=== PATIENT | female | born 1960 | race African-American/Black ===

== ENCOUNTER 2016-07-09 07:27 | Emergency (ER) | payer SELFPAY ==
[~2016-07-09] VITALS: Ht 185.4 cm; Wt 127.0 kg
[~2016-07-09 07:27] MED LIST: IBUP-777; NORCO
[2016-07-09 07:41] VITALS: BP 166/80
[2016-07-09] MEDS ORDERED: ONDANSETRON 4MG ODT PO STA (09:43)
[2016-07-09 10:14] LABS: CARBON DIOXIDE 25 mEq/L (21-32); CHLORIDE 103 mEq/L (98-107)
[2016-07-09 11:01] LABS: CLARITY URINE CLOUDY (CLEAR); COLOR URINE YELLOW (YELLOW); GLUCOSE URINE NEGATIVE (NEGATIVE); KETONES URINE NEGATIVE (NEGATIVE); LEUKOCYTE ESTERASE URINE NEGATIVE (NEGATIVE); NITRITE URINE NEGATIVE (NEGATIVE); OCCULT BLOOD URINE 1+ (NEGATIVE); PROTEIN URINE NEGATIVE (NEGATIVE); SPECIFIC GRAVITY URINE 1.025 (1.005-1.030); UROBILINOGEN URINE 0.2 E.U./dL (0.2-1.0)
== END 2016-07-09 12:42 | disposition home or self-care (01) ==
LOC: ER 09:30
DX: B48.8 Other specified mycoses (principal); B34.9 Viral infection, unspecified; I10 Essential (primary) hypertension; Z88.2 Allergy status to sulfonamides; Z79.1 Long term (current) use of non-steroidal anti-inflammatories (NSAID); Z87.440 Personal history of urinary (tract) infections; Z90.49 Acquired absence of other specified parts of digestive tract
CPT/HCPCS: 36415; 80048; 81001; 99284; Q0162

== ENCOUNTER 2020-09-06 10:30 | Inpatient (IN) | payer MEDICARE, MEDICAID ==
[~2020-09-06] VITALS: Ht 167.6 cm; Wt 121.6 kg
[2020-09-06] MEDS ORDERED: ACETAMINOPHEN 325MG TABLET PO ONE (11:00)
[2020-09-06 11:58] LABS: EOSINOPHILS % 0.1 % (0.0-5.0); HEMATOCRIT. 37.5 % (36.0-48.0); HEMOGLOBIN. 12.6 g/dL (12.0-16.0); LYMPHOCYTES % 40.8 % (20.0-50.0); MEAN CORPUSCULAR HEMOGLOBIN 27.1 pg (28.0-32.0); MEAN CORPUSCULAR VOLUME 80.4 fL (81.0-99.0); MEAN PLATELET VOLUME 9.5 fl (7.4-10.4); MONOCYTES % 9.2 % (2.0-8.0); NEUTROPHILS % 48.9 % (40.0-76.0); PLATELET 131 x1000/uL (130-400); RED BLOOD CELL COUNT 4.67 mill/uL (4.2-5.4); RED CELL DISTRIBUTION WIDTH 15.6 % (11.6-14.6)
[2020-09-06 12:02] LABS: CHLORIDE 103 mEq/L (98-107)
[2020-09-06 12:06] LABS: D-DIMER 0.41 mg/L FEU (<0.50); PROTHROMBIN TIME 10.9 sec (9.6-11.0)
[2020-09-06 12:10] LABS: CREATINE KINASE 303 IU/L (26-192)
[2020-09-06 12:25] LABS: BG BASE EXCESS 5.9 mmol/L (-2.0-2.0); BG DEOXYHEMOGLOBIN 4.7 % (0.0-5.0); BG FRACTION INSPIRED OXYGEN 21; BG HCO3 ACT 29.2 mmol/L (22.0-26.0); BG METHEMOGLOBIN 0.3 % (0.0-1.5); BG OXYGEN SATURATION 95.3 % (92.0-98.5); BG PCO2 37.6 mmHg (35.0-45.0); BG PH 7.508 (7.350-7.450); BG PO2 77.2 mmHg (75.0-100.0); BG SAMPLE SITE RIGHT RADIAL; BG TOTAL HEMOGLOBIN 12.8 g/dL (12.0-18.0); BG VENT MODE ROOM AIR
[2020-09-06] MEDS ORDERED: DEXAMETHASONE 10 MG/ML VIAL IV ONE (12:45)
[2020-09-06 13:14] LABS: CLARITY URINE CLEAR (CLEAR); COLOR URINE YELLOW (YELLOW); KETONES URINE 1+ (NEGATIVE); LEUKOCYTE ESTERASE URINE NEGATIVE (NEGATIVE); NITRITE URINE NEGATIVE (NEGATIVE); OCCULT BLOOD URINE NEGATIVE (NEGATIVE); PROTEIN URINE 1+ (NEGATIVE); SPECIFIC GRAVITY URINE 1.025 (1.005-1.030); UROBILINOGEN URINE 0.2 E.U./dL (0.2-1.0)
[2020-09-06] MEDS ORDERED: ALBUTEROL 6.7GM HFA INHALER ORI PRN (17:15)
[2020-09-06] MEDS ORDERED: KETOROLAC 15MG/ML VIAL IV PRN (17:30)
[2020-09-06] MEDS ORDERED: DOCUSATE SODIUM 100MG CAPSULE PO PRN (17:30)
[2020-09-06] MEDS ORDERED: ACETAMINOPHEN 325MG TABLET PO PRN ×2 (17:30)
[2020-09-06] MEDS ORDERED: ZOLPIDEM TARTRATE 5MG TABLET PO PRN (17:30)
[2020-09-06] MEDS ORDERED: MAGNESIUM/ALUMINUM HYDROXIDE/SIMETHICONE 30ML UDC PO PRN (17:30)
[2020-09-06] MEDS ORDERED: GUAIFENESIN 200MG/10ML SUGAR FREE UDC PO PRN (17:30)
[2020-09-06] MEDS ORDERED: NITROGLYCERIN 0.4MG TABLET SL SL PRN (17:30)
[2020-09-06] MEDS ORDERED: AMLO10TA80 MT (17:40)
[2020-09-06 17:48] VITALS: BP 141/69
[2020-09-06 17:57] VITALS: BP 141/69
[2020-09-06] MEDS: ASCORBIC ACID 500 MG TABLET PO SCH (18:10)
[2020-09-06] MEDS: ZINC SULFATE 220 MG ( 50 ) CAPSULE PO SCH (18:10)
[2020-09-06 19:30] LABS: FOLIC ACID (FOLATE) SERUM >20 ng/mL ng/mL (>5.38)
[2020-09-06] MEDS: AZITHROMYCIN 500 MG in DEXT 5% WATER 250 ML IV SCH (19:58)
[2020-09-06] MEDS: FAMOTIDINE 20MG TABLET PO SCH (19:59)
[2020-09-06 20:00] VITALS: BP 156/76
[2020-09-06] MEDS: GUAIFENESIN 600MG ER TABLET PO SCH (20:00)
[2020-09-06] MEDS ORDERED: POTASSIUM CHLORIDE 20MEQ/PACKET PO NR (21:00)
[2020-09-06] MEDS ORDERED: ENOXAPARIN 40MG/0.4ML SYR SUBCUT SCH (21:00)
[2020-09-06] MEDS: CEFTRIAXONE 1,000 MG in DEXTROSE 5% WATER 50 ML IV SCH (21:13)
[2020-09-06] MEDS: ONDANSETRON HCL 4MG/2ML INJ IV PRN (21:23)
[2020-09-06 21:43] LABS: VITAMIN B12 SERUM 614 pg/mL (211-911)
[2020-09-06 23:31] LABS: CREATINE KINASE MB FRACTION < 1.0 ng/mL (0.5-3.6)
[2020-09-07] MEDS: TRAMADOL 50MG TABLET PO PRN ×2 (00:02→21:53)
[2020-09-07 00:06] VITALS: BP 142/76
[2020-09-07 00:14] LABS: CREATINE KINASE 257 IU/L (26-192)
[2020-09-07 04:00] VITALS: BP 161/77
[2020-09-07 06:43] LABS: CHLORIDE 104 mEq/L (98-107)
[2020-09-07 06:49] LABS: PHOSPHORUS 1.7 mg/dL (2.5-4.9)
[2020-09-07 06:52] LABS: CREATINE KINASE 242 IU/L (26-192)
[2020-09-07 06:55] LABS: CREATINE KINASE MB FRACTION < 1.0 ng/mL (0.5-3.6)
[2020-09-07 07:03] LABS: BASOPHILS % 0.5 % (0.0-2.0); HEMATOCRIT. 36.2 % (36.0-48.0); LYMPHOCYTES % 39.8 % (20.0-50.0); MEAN CORPUSCULAR HEMOGLOBIN 26.3 pg (28.0-32.0); MEAN CORPUSCULAR VOLUME 79.7 fL (81.0-99.0); MONOCYTES % 12.9 % (2.0-8.0); NEUTROPHILS % 46.8 % (40.0-76.0); PLATELET 139 x1000/uL (130-400); RED BLOOD CELL COUNT 4.55 mill/uL (4.2-5.4)
[2020-09-07 08:00] VITALS: BP 132/58
[2020-09-07] MEDS: DEXAMETHASONE 6MG TABLET PO SCH (08:06)
[2020-09-07] MEDS: ZINC SULFATE 220 MG ( 50 ) CAPSULE PO SCH (08:06)
[2020-09-07] MEDS: ASCORBIC ACID 500 MG TABLET PO SCH (08:06)
[2020-09-07] MEDS: FAMOTIDINE 20MG TABLET PO SCH ×2 (08:06→20:57)
[2020-09-07] MEDS: GUAIFENESIN 600MG ER TABLET PO SCH ×2 (08:06→20:57)
[2020-09-07] MEDS ORDERED: CEFTRIAXONE 1 G PREMIX 50 ML IV SCH (09:00)
[2020-09-07] MEDS: ONDANSETRON HCL 4MG/2ML INJ IV PRN (11:13)
[2020-09-07 12:00] VITALS: BP 143/77
[2020-09-07 16:00] VITALS: BP 146/68
[2020-09-07] MEDS: ENOXAPARIN 30MG/0.3ML SYR SUBCUT SCH (17:50)
[2020-09-07] MEDS: AZITHROMYCIN 500 MG in DEXT 5% WATER 250 ML IV SCH (18:40)
[2020-09-07 20:00] VITALS: BP 150/72
[2020-09-07] MEDS: CEFTRIAXONE 1,000 MG in DEXTROSE 5% WATER 50 ML IV SCH (20:57)
[2020-09-08] VITALS: BP 137/68
[2020-09-08 04:00] VITALS: BP 153/60
[2020-09-08] MEDS: ENOXAPARIN 30MG/0.3ML SYR SUBCUT SCH ×2 (06:01→17:17)
[2020-09-08 08:00] VITALS: BP 161/59
[2020-09-08] MEDS: CLONIDINE 0.1MG TABLET PO PRN (08:45)
[2020-09-08] MEDS: DEXAMETHASONE 6MG TABLET PO SCH (08:45)
[2020-09-08] MEDS: FAMOTIDINE 20MG TABLET PO SCH ×2 (08:45→20:15)
[2020-09-08] MEDS: ONDANSETRON HCL 4MG/2ML INJ IV PRN (08:45)
[2020-09-08] MEDS: ZINC SULFATE 220 MG ( 50 ) CAPSULE PO SCH (08:46)
[2020-09-08] MEDS: ASCORBIC ACID 500 MG TABLET PO SCH (08:46)
[2020-09-08] MEDS: GUAIFENESIN 600MG ER TABLET PO SCH ×2 (08:46→20:15)
[2020-09-08 12:00] VITALS: BP 157/55
[2020-09-08] MEDS ORDERED: NALOXONE HCL 0.4MG/ML VIAL IV PRN (14:30)
[2020-09-08 16:00] VITALS: BP 142/51
[2020-09-08] MEDS: AZITHROMYCIN 500 MG in DEXT 5% WATER 250 ML IV SCH (17:17)
[2020-09-08 20:00] VITALS: BP 130/53
[2020-09-08] MEDS: CEFTRIAXONE 1,000 MG in DEXTROSE 5% WATER 50 ML IV SCH (20:15)
[2020-09-08] MEDS: TRAMADOL 50MG TABLET PO PRN (20:15)
[2020-09-09] VITALS: BP 149/70
[2020-09-09 04:00] VITALS: BP 133/52
[2020-09-09] MEDS: ENOXAPARIN 30MG/0.3ML SYR SUBCUT SCH ×2 (05:30→18:18)
[2020-09-09 08:00] VITALS: BP 190/67
[2020-09-09] MEDS: DEXAMETHASONE 6MG TABLET PO SCH (09:21)
[2020-09-09] MEDS: FAMOTIDINE 20MG TABLET PO SCH ×2 (09:22→20:46)
[2020-09-09] MEDS: ZINC SULFATE 220 MG ( 50 ) CAPSULE PO SCH (09:22)
[2020-09-09] MEDS: GUAIFENESIN 600MG ER TABLET PO SCH ×2 (09:22→20:46)
[2020-09-09] MEDS: ASCORBIC ACID 500 MG TABLET PO SCH (09:22)
[2020-09-09] MEDS: CLONIDINE 0.1MG TABLET PO PRN (09:23)
[2020-09-09 12:00] VITALS: BP 159/65
[2020-09-09 16:00] VITALS: BP 159/74
[2020-09-09] MEDS: AZITHROMYCIN 500 MG in DEXT 5% WATER 250 ML IV SCH (18:18)
[2020-09-09 20:00] VITALS: BP 146/73
[2020-09-09] MEDS: CEFTRIAXONE 1,000 MG in DEXTROSE 5% WATER 50 ML IV SCH (20:46)
[2020-09-10] VITALS: BP 151/63
[2020-09-10 04:00] VITALS: BP 152/53
[2020-09-10] MEDS: ENOXAPARIN 30MG/0.3ML SYR SUBCUT SCH (05:10)
[2020-09-10 08:02] VITALS: BP 146/82
[2020-09-10] MEDS: GUAIFENESIN 600MG ER TABLET PO SCH (08:27)
[2020-09-10] MEDS: ASCORBIC ACID 500 MG TABLET PO SCH (08:28)
[2020-09-10] MEDS: ZINC SULFATE 220 MG ( 50 ) CAPSULE PO SCH (08:28)
[2020-09-10] MEDS: FAMOTIDINE 20MG TABLET PO SCH (08:28)
[2020-09-10] MEDS: DEXAMETHASONE 6MG TABLET PO SCH (08:28)
[2020-09-10] MEDS ORDERED: BENZ-16 MT (11:14)
[2020-09-10] MEDS ORDERED: ALBU18HF2 IH (11:14)
[2020-09-10 12:00] VITALS: BP 141/66
[2020-09-10 13:18] VITALS: BP 141/66
[2020-09-10] MEDS ORDERED: FAMO-135 MT (13:36)
[2020-09-10] MEDS ORDERED: CHOL200016 (13:36)
[2020-09-10] MEDS ORDERED: ZINC220C2 (13:36)
[2020-09-10] MEDS ORDERED: ASCO-339 PO (13:36)
[2020-09-10] MEDS ORDERED: DEXA6TAB6 PO (13:36)
[2020-09-10] MEDS ORDERED: AZIT500T3 MT (13:36)
== END 2020-09-10 16:30 | disposition home or self-care (01) | DRG 871 ==
LOC: ER 10:30 → 7WST 13:28 → EDBEDREQSVC 13:31 → EDBEDREQ 13:31 → EDBEDREQTM 13:31 → ENRESERV 15:09 → ER 15:27 → SUPCPDRO 16:53
PROVIDERS: ADMIT Internal Medicine; ATTEND Internal Medicine
DX: A41.89 Other specified sepsis (principal); U07.1 COVID-19; J96.01 Acute respiratory failure with hypoxia; J12.82 Pneumonia due to coronavirus disease 2019; E87.6 Hypokalemia; R00.1 Bradycardia, unspecified; M54.30 Sciatica, unspecified side; I10 Essential (primary) hypertension; Z87.440 Personal history of urinary (tract) infections; Z90.49 Acquired absence of other specified parts of digestive tract; Z78.9 Other specified health status; Z88.2 Allergy status to sulfonamides; Z28.3 Underimmunization status
CPT/HCPCS: 36415; 36600; 71045; 80053; 80061; 81003; 82375; 82550; 82553; 82607; 82728; 82746; 82805; 83036; 83540; 83550; 83605; 83615; 83735; 84100; 84145; 84484; 85025; 85379; 85384; 86140; 93005; 93970; 99291; J0456; J0696; J1100; J1650; J2405; J7040; J7060; U0003; U0005

== ENCOUNTER 2021-07-31 11:12 | Emergency (ER) | payer MEDICARE, MEDICAID ==
[~2021-07-31] VITALS: Ht 185.4 cm; Wt 122.0 kg
[~2021-07-31 11:12] MED LIST changes: +ALBU18HF2 IH; +AMLO10TA80 MT; +ASCO-339 PO; +AZIT500T3 MT; +BENZ-16 MT; +CHOL200016; +DEXA6TAB6 PO; +FAMO-135 MT; -IBUP-777; -NORCO; +ZINC220C2
[2021-07-31] MEDS ORDERED: ONDANSETRON HCL 4MG/2ML INJ IV STA (12:17)
[2021-07-31] MEDS ORDERED: KETOROLAC 30MG/ML VIAL IV STA (12:17)
[2021-07-31] MEDS ORDERED: SODIUM CHLORIDE 0.9% 1,000 ML IV ONE (12:30)
[2021-07-31] MEDS ORDERED: CEFTRIAXONE 1 G PREMIX 50 ML IV ONE (12:30)
[2021-07-31 12:52] LABS: CLARITY URINE CLEAR (CLEAR); COLOR URINE YELLOW (YELLOW); KETONES URINE NEGATIVE (NEGATIVE); LEUKOCYTE ESTERASE URINE 1+ (NEGATIVE); NITRITE URINE NEGATIVE (NEGATIVE); OCCULT BLOOD URINE NEGATIVE (NEGATIVE); PROTEIN URINE NEGATIVE (NEGATIVE); SPECIFIC GRAVITY URINE 1.022 (1.005-1.030)
[2021-07-31 12:53] LABS: BASOPHILS % 1.9 % (0.0-2.0); EOSINOPHILS % 2.8 % (0.0-5.0); HEMATOCRIT. 36.8 % (36.0-48.0); LYMPHOCYTES % 34.3 % (20.0-50.0); MEAN CORPUSCULAR HEMOGLOBIN 26.1 pg (28.0-32.0); MEAN CORPUSCULAR VOLUME 79.9 fL (81.0-99.0); MEAN PLATELET VOLUME 9.3 fl (7.4-10.4); MONOCYTES % 7.6 % (2.0-8.0); NEUTROPHILS % 53.4 % (40.0-76.0); PLATELET 186 x1000/uL (130-400); RED BLOOD CELL COUNT 4.61 mill/uL (4.2-5.4); RED CELL DISTRIBUTION WIDTH 16.2 % (11.6-14.6)
[2021-07-31 12:55] LABS: CHLORIDE 106 mEq/L (98-107)
[2021-07-31] MEDS ORDERED: IBUP-2029 MT (14:13)
[2021-07-31] MEDS ORDERED: DIF15 MT (14:13)
[2021-07-31] MEDS ORDERED: CIPR500T5 MT (14:13)
[2021-07-31 16:40] VITALS: BP 167/95
== END 2021-07-31 16:50 | disposition home or self-care (01) ==
LOC: ER 11:12
DX: N39.0 Urinary tract infection, site not specified (principal); B37.3 Candidiasis of vulva and vagina; I10 Essential (primary) hypertension; M54.30 Sciatica, unspecified side; N73.9 Female pelvic inflammatory disease, unspecified; Z90.49 Acquired absence of other specified parts of digestive tract; Z88.2 Allergy status to sulfonamides
CPT/HCPCS: 36415; 74176; 80053; 81003; 85025; 87086; 96365; 96375; 99284; J0696; J1885; J2405; J7030

== ENCOUNTER 2021-11-11 14:54 | Emergency (ER) | payer MEDICARE, MEDICAID ==
[~2021-11-11] VITALS: Ht 175.3 cm; Wt 101.0 kg
[~2021-11-11 14:54] MED LIST changes: +CIPR500T5 MT; +DIF15 MT; +IBUP-2029 MT
[2021-11-11] MEDS ORDERED: KETOROLAC 30MG/ML VIAL IV STA (16:58)
[2021-11-11] MEDS ORDERED: SODIUM CHLORIDE 0.9% 1,000 ML IV ONE (17:00)
[2021-11-11 18:00] LABS: CLARITY URINE CLEAR (CLEAR); COLOR URINE YELLOW (YELLOW); KETONES URINE TRACE (NEGATIVE); LEUKOCYTE ESTERASE URINE NEGATIVE (NEGATIVE); NITRITE URINE NEGATIVE (NEGATIVE); OCCULT BLOOD URINE NEGATIVE (NEGATIVE); PH URINE 5.5 (4.5-8.0); PROTEIN URINE TRACE (NEGATIVE); SPECIFIC GRAVITY URINE 1.033 (1.005-1.030); UROBILINOGEN URINE 0.2 E.U./dL (0.2-1.0)
[2021-11-11 18:30] LABS: BASOPHILS % 1.2 % (0.0-2.0); EOSINOPHILS % 3.1 % (0.0-5.0); HEMATOCRIT. 35.6 % (36.0-48.0); HEMOGLOBIN. 11.9 g/dL (12.0-16.0); LYMPHOCYTES % 35.2 % (20.0-50.0); MEAN CORPUSCULAR HEMOGLOBIN 27.6 pg (28.0-32.0); MEAN CORPUSCULAR VOLUME 82.7 fL (81.0-99.0); MEAN PLATELET VOLUME 9.1 fl (7.4-10.4); MONOCYTES % 6.5 % (2.0-8.0); PLATELET 199 x1000/uL (130-400); RED BLOOD CELL COUNT 4.31 mill/uL (4.2-5.4); RED CELL DISTRIBUTION WIDTH 15.5 % (11.6-14.6)
[2021-11-11 19:54] LABS: *AMPHETAMINES SCREEN URINE NEGATIVE (NEGATIVE); *BARBITURATES SCREEN URINE NEGATIVE (NEGATIVE); *BENZODIAZEPINES SCREEN URINE NEGATIVE (NEGATIVE); *COCAINE SCREEN URINE NEGATIVE (NEGATIVE); CANNABINOID URINE SCREEN NEGATIVE (NEGATIVE); METHADONE URINE SCREEN NEGATIVE (NEGATIVE); OPIATES URINE SCREEN NEGATIVE (NEGATIVE); PHENCYCLIDINE URINE SCREEN NEGATIVE (NEGATIVE)
[2021-11-11 20:11] LABS: CHLORIDE 106 mEq/L (98-107)
[2021-11-11] MEDS ORDERED: IBUP-2030 MT (20:44)
[2021-11-11] MEDS ORDERED: METH-773 MT (20:44)
[2021-11-11 21:06] VITALS: BP 136/87
== END 2021-11-11 21:09 | disposition home or self-care (01) ==
LOC: ER 14:54
DX: M54.50 Low back pain, unspecified (principal); G89.29 Other chronic pain; M54.30 Sciatica, unspecified side; I10 Essential (primary) hypertension; N73.9 Female pelvic inflammatory disease, unspecified; Z90.49 Acquired absence of other specified parts of digestive tract; Z88.8 Allergy status to other drugs, medicaments and biological substances
CPT/HCPCS: 36415; 80053; 80305; 81003; 83690; 85025; 96361; 96374; 99283; J1885; J7030

== ENCOUNTER 2022-05-13 18:37 | Emergency (ER) | payer MEDICARE, MEDICAID ==
[~2022-05-13] VITALS: Ht 185.4 cm; Wt 161.0 kg
[~2022-05-13 18:37] MED LIST changes: +IBUP-2030 MT; +METH-773 MT
[2022-05-13] MEDS ORDERED: KETOROLAC 30MG/ML VIAL IM ONE (22:45)
[2022-05-13] MEDS ORDERED: ACETAMINOPHEN 325MG TABLET PO ONE (22:45)
[2022-05-13 22:54] VITALS: BP 191/91
[2022-05-13 22:57] LABS: CLARITY URINE CLOUDY (CLEAR); COLOR URINE YELLOW (YELLOW); KETONES URINE NEGATIVE (NEGATIVE); LEUKOCYTE ESTERASE URINE 1+ (NEGATIVE); NITRITE URINE POSITIVE (NEGATIVE); OCCULT BLOOD URINE NEGATIVE (NEGATIVE); PROTEIN URINE NEGATIVE (NEGATIVE); SPECIFIC GRAVITY URINE 1.023 (1.005-1.030)
[2022-05-13 23:02] LABS: BASOPHILS % 1.1 % (0.0-2.0); EOSINOPHILS % 2.3 % (0.0-5.0); LYMPHOCYTES % 30.7 % (20.0-50.0); MEAN CORPUSCULAR HEMOGLOBIN 26.5 pg (28.0-32.0); MEAN CORPUSCULAR VOLUME 81.7 fL (81.0-99.0); MEAN PLATELET VOLUME 9.1 fl (7.4-10.4); MONOCYTES % 7.5 % (2.0-8.0); NEUTROPHILS % 58.4 % (40.0-76.0); PLATELET 187 x1000/uL (130-400); RED BLOOD CELL COUNT 4.53 mill/uL (4.2-5.4); RED CELL DISTRIBUTION WIDTH 15.9 % (11.6-14.6)
[2022-05-13 23:11] LABS: CHLORIDE 108 mEq/L (98-107)
[2022-05-14] MEDS ORDERED: NAPR-681 MT (00:03)
[2022-05-14] MEDS ORDERED: CEPH500C2 MT (00:03)
[2022-05-14] MEDS ORDERED: CEPHALEXIN 250MG CAPSULE PO ONE (00:15)
== END 2022-05-14 00:14 | disposition home or self-care (01) ==
LOC: ER 18:37
DX: N39.0 Urinary tract infection, site not specified (principal); I10 Essential (primary) hypertension; Z88.2 Allergy status to sulfonamides; Z79.899 Other long term (current) drug therapy; Z90.49 Acquired absence of other specified parts of digestive tract
CPT/HCPCS: 36415; 80053; 81003; 85025; 87077; 87086; 87186; 96372; 99283; J1885

== ENCOUNTER 2023-02-06 12:55 | Emergency (ER) | payer MEDICARE, MEDICAID ==
[~2023-02-06] VITALS: Ht 175.3 cm; Wt 100.0 kg
[~2023-02-06 12:55] MED LIST changes: +AZIT500T MT; -AZIT500T3 MT; +CEPH500C2 MT; +NAPR-681 MT
[2023-02-06 13:09] VITALS: O2SAT 96
[2023-02-06] MEDS ORDERED: IBUPROFEN 600MG TABLET PO ONE (14:30)
[2023-02-06 15:34] LABS: CLARITY URINE CLEAR (CLEAR); COLOR URINE YELLOW (YELLOW); GLUCOSE URINE NEGATIVE (NEGATIVE); KETONES URINE NEGATIVE (NEGATIVE); LEUKOCYTE ESTERASE URINE TRACE (NEGATIVE); NITRITE URINE NEGATIVE (NEGATIVE); OCCULT BLOOD URINE NEGATIVE (NEGATIVE); PH URINE 5.5 (4.5-8.0); PROTEIN URINE NEGATIVE (NEGATIVE); SPECIFIC GRAVITY URINE 1.028 (1.005-1.030)
[2023-02-06 15:46] LABS: SQUAMOUS EPITHELIAL CELL URINE 1+ /lpf (RARE/1+)
[2023-02-06 15:47] LABS: BACTERIA URINE FEW; RBC URINE 0-2 /hpf (0-2); YEAST URINE NONE SEEN
[2023-02-06 16:30] VITALS: BP 164/83; PULSE 78; RESP 18; TEMP 98.2
== END 2023-02-06 16:33 | disposition home or self-care (01) ==
LOC: ER 12:57
DX: M54.50 Low back pain, unspecified (principal); I10 Essential (primary) hypertension; Z88.2 Allergy status to sulfonamides; Z79.899 Other long term (current) drug therapy; Z90.49 Acquired absence of other specified parts of digestive tract; Z98.890 Other specified postprocedural states; Z87.440 Personal history of urinary (tract) infections
CPT/HCPCS: 81003; 99283